=== PATIENT | female | born 1995 ===

== ENCOUNTER → 2023-01-26 09:42 | Outpatient (CLI) | payer OTHER, SELFPAY ==
--- NOTE | ~2023-01-26 | MR_ITS ---
EXAMINATION: MR foot RT wo con DATE: 01/26/2023 10:38 INDICATION: Right foot pain and swelling. TECHNIQUE: Magnetic resonance imaging (MRI) of the right foot was performed without intravenous contr ast. COMPARISON: None FINDINGS: There is mild hallux valgus. There is a skin marker dorsal medial to first metatarsophalang eal joint. There is mild osteoarthritis of first metatarsophalangeal joint. Lisfranc ligament is norm al. The flexor and extensor tendons are normal. IMPRESSION: 1. Mild hallux valgus. 2. Mild osteoarthritis of first metatarsophalangeal joint. Reviewed, dictated and finalized at location A. [employer]
== END ==
PROVIDERS: PCP Podiatrist Foot & Ankle Surgery; Visit Provider Podiatrist Foot & Ankle Surgery
DX: M20.11 Hallux valgus (acquired), right foot (principal); M19.071 Primary osteoarthritis, right ankle and foot
CPT/HCPCS: 73718